=== PATIENT | female | born 2000 | race Caucasian/White ===

== ENCOUNTER 2023-01-02 01:21 | Emergency (ER) | payer OTHER, SELFPAY ==
[2023-01-02 01:38] VITALS: BP 121/69; PULSE 66; RESP 16; TEMP 37.2; O2SAT 99; BMI 22.8
--- NOTE | 2023-01-02 02:18 | ED.FEMALEGU ---
HPI - Female Genitourinary General Chief complaint: Urogenital-Female Stated complaint: cyst on rt ovary hurts Time Seen by Provider: 01/02/23 01:34 Source: patient Mode of arrival: Ambulatory History of Present Illness HPI Narrative: 22-year-old female nonsmoker with history of ovarian cysts recently diagnosed by CT scan at [facility] presents with a chief complaint of sudden-onset right lower quadrant pain that started about 1 hour ago. She states she had been in her normal state of health and felt the pain that is relatively similar to what she had been experiencing it just seems to have intensified. She states it is worse when she moves and improves with rest. It is sharp and stabbing and has been rather persistent. She denies associated symptoms such as dizziness, weakness or lightheadedness. She has had no nausea or vomiting. She denies constipation or diarrhea and has no urinary complaints such as dysuria, frequency or urgency. She does not have periods due to her IUD but denies vaginal bleeding or discharge. Related Data Previous Rx's Medication Instructions Recorded ibuprofen 600 mg tablet 600 mg PO Q6H PRN pain #20 tabs 01/02/23 Allergies Allergy/AdvReac Type Severity Reaction Status Date / Time No Known Drug Allergies Allergy Verified 01/02/23 02:03 Review of Systems Review of Systems Narrative: GENERAL: Denies chills, fatigue, malaise, fever, sweats. HEENT: Denies sinus pain, ear pain, sore throat, difficulty swallowing, dizziness. RESPIRATORY: Denies dyspnea, cough, wheezing, hemoptysis, sputum. CARDIOVASCULAR: Denies chest pain, palpitations, orthopnea, edema, GASTROINTESTINAL: Denies nausea, vomiting, abdominal pain, diarrhea, constipation, melena. : See HPI MUSCULOSKELETAL: denies weakness, joint pain, or bony pain SKIN: Denies rash, skin lesions, or other NEUROLOGIC: Denies weakness, headache, numbness, change in speech, confusion, seizures, incoordination. PSYCHIATRIC: No concerning psychosocial issues. 12 point review of systems is negative except for those stated above Patient History Substance Use Type: does not use Exam Narrative Exam Narrative: GENERAL: [22] year old patient appears stated age. Well-developed patient, in mild distress. HEAD: Atraumatic. Normocephalic. EYES: Pupils equal round and reactive. Extraocular motions intact. No scleral icterus. No injection or drainage. ENT: Nose without bleeding, purulent drainage. Throat without erythema, tonsillar hypertrophy or exudate. Airway patent. NECK: Trachea midline. Non tender CARDIOVASCULAR: Regular rate and rhythm without murmurs, gallops, or rubs. RESPIRATORY: Clear to auscultation. Breath sounds equal bilaterally. No wheezes, rales, or rhonchi. GASTROINTESTINAL: Abdomen soft, right lower quadrant tenderness to palpation, no rebound or guarding, nondistended. EXTREMITIES: No edema or joint tenderness. BACK: Nontender without deformity or crepitance. No flank tenderness. NEURO: AOx3. SKIN: No rash or erythema of visible areas Initial Vital Signs Initial Vital Signs: Vital Signs Temperature 98.9 F 01/02/23 01:38 Pulse Rate 66 01/02/23 01:38 Respiratory Rate 16 01/02/23 01:38 Blood Pressure 121/69 01/02/23 01:38 Pulse Oximetry 99 01/02/23 01:38 Oxygen Delivery Method Room Air 01/02/23 01:38 Course Orders Ordered: ED Orders 01/02/23 02:23 US pelvic complete Stat Discontinued Medications Hydrocodone Bitart/Acetaminophen (Hydrocodone/Acet 5/325 Prepack) 1 bottle MISC SEEINSTR ONE Stop: 01/02/23 04:07 Ketorolac Tromethamine (Ketorolac 30 Mg/Ml Vial) 30 mg IM NOW ONE Stop: 01/02/23 03:29 Last Admin: 01/02/23 03:41 Dose: 30 mg Documented By: Vital Signs Vital signs: Vital Signs - 8 hr 01/02/23 01:38 01/02/23 03:46 Temperature 98.9 F Pulse Rate 66 59 L Respiratory Rate 16 16 Blood Pressure 121/69 113/57 L Pulse Oximetry 99 100 Oxygen Delivery Method Room Air Room Air MDM - Female Genitourinary Lab Data Labs: Point of Care Testing Test Results Negative Urine Dip Bedside Urine Glucose Negative Bedside Urine Bilirubin - Negative Bedside Urine Ketone - Negative Urine Specific [place] 1.025 Bedside Urine Occult Blood - Negative Bedside Urine pH 6.0 Bedside Urine Protein - Negative Bedside Urine Urobilinogen 0.2mg/dl Bedside Urine Nitrite - Negative Bedside Urine Leukocytes - Negative Esterase MDM Narrative Medical decision making narrative: [22] year old patient presents with right lower quadrant pain and known history of ovarian cyst Multiple etiologies for patient's symptoms considered including, but not limited to: [Ovarian cyst versus UTI vs IUD problem versus other] Prior Charts reviewed in our EMR Primary Historian: patient Labs reviewed and interpreted by myself: Urine without signs of infection or blood Imaging reviewed: Ultrasound shows minimal amount of fluid, IUD in appropriate position, normal sonographic appearance of right ovary, likely corpus luteum in the left ovary Patient's symptoms improved over duration of stay with above-stated therapies. Marked improvement with Toradol. We did discuss possibility of alternate diagnoses such as early appendicitis versus other, however she just had an extensive workup including CT scan that was unremarkable. Given her improved symptoms, rather classic history and physical and reassuring ultrasound we will hold off for now and discussed that the next 12-24 hours would likely be very helpful in uncovering more significant underlying diagnoses patient given extensive return precautions which include worsening pain, fever, persistent vomiting or other concerning symptoms Findings and discharge diagnosis discussed with patient/family followed by verbalization of understanding Return precautions discussed with patient/family whom verbalize understanding of diagnosis and plan Discharge Plan Departure Patient Disposition: Home Clinical Impression: Acute right lower quadrant pain Instructions: DI for Ovarian Cyst Activity Restrictions/Additional Instructions: *You have been diagnosed with [right lower quadrant pain, as we discussed most likely due to your ovarian cyst. Your history and physical exam are reassuring, labs demonstrate no sign urinary infection in the ultrasound shows no significant abnormalities. As we discussed though this could be an alternate diagnosis such as early appendicitis seems unlikely given your story but the next 12-24 hours we would expect worsening pain, fever, vomiting if a more serious underlying diagnosis were present] *What to do: *Please continue to take your regular medications as directed. [x ] New medication prescriptions sent to your pharmacy: [[facility] ] [ ] New medication written as a paper prescription [ ] No new medications given *Please follow up with your primary care provider in 2-3 days, call for an appointment. Let them know you were seen in the Emergency Department and that we ask that you be seen in follow up. We will electronically transmit a record of today's note if your PCP is in our system *If you do not have a primary care provider please contact the [facility] Resource line at [phone]. They will ask some questions about your medical history and help get you set up with a doctor in the community. *Return to Emergency Department if you should have any new, worsening or concerning symptoms, such as [fever greater than 101 F, shaking chills, worsening pain, persistent vomiting or other bothersome symptoms] Prescriptions: New ibuprofen 600 mg tablet 600 mg PO Q6H PRN (Reason: pain) Qty: 20 0RF Referrals: ProviderWan [Primary Care Provider] - Stand Alone Forms: Patient Portal/API
--- NOTE | 2023-01-02 02:23 | DI.US.S_ITS ---
PROCEDURE: US PELVIC COMPLETE INDICATIONS: RIGHT PELVIC PAIN; HX OVARIAN CYST TECHNIQUE: Real-time scanning was performed of the pelvic organs, with image documentation. Additional endovaginal scanning was necessary due to incomplete visualization of the adnexal and endometrial structures by transabdominal scanning. COMPARISON: None. FINDINGS: Uterus: Uterus is anteverted and normal in size at 6.9 x 3.5 x 4.3 cm. The myometrium is homogeneous. The endometrium measures 2 mm combined thickness. IUD within the central uterus. Ovaries: The right ovary measures 2.5 x 3.3 x 2.2 cm, with a calculated ovarian volume of 9 cc. The left ovary measures 2.5 x 3.0 x 3.3 cm, with a calculated ovarian volume of 13 cc. The ovaries have a normal sonographic appearance. Less than 12 follicles can be seen in each ovary. No adnexal masses are seen. Degenerating left corpus luteum. Other: No pathologic free abdominal or pelvic fluid. IMPRESSION: Degenerating left-sided corpus luteum. IUD appears appropriately positioned. Agree with preliminary report. We strive to produce accurate, complete, and clear reports of imaging services. To assist us in improving patient care, this report was composed using standard report templates and voice recognition software. Therefore, it may contain abnormal punctuation, insertions and/or omissions. Occasional wrong-word or sound-alike substitutions may occur. Though we review the report and make efforts to correct it, we do recommend that the report be read carefully in proper context to recognize any text inaccuracies. Dictated by: Garrett Aguayo M.D. on 01/02/2023 at 8:02 Approved by: Garrett Aguayo M.D. on 01/02/2023 at 8:04
[2023-01-02] MEDS: KETOROLAC 30 MG/ML VIAL IM (03:41)
[2023-01-02 03:46] VITALS: BP 113/57; PULSE 59; RESP 16; O2SAT 100
[2023-01-02] MEDS: HYDROCODONE/ACET 5/325 PREPACK 1 BOTTLE MISC (04:11)
== END 2023-01-02 04:14 | disposition home or self-care (01) ==
PROVIDERS: Emergency Provider Emergency Medicine
DX: R10.31 Right lower quadrant pain (principal)
CPT/HCPCS: 76830; 76856; 81003; 81025; 93975; 96372; 99283; J1885

== ENCOUNTER 2023-06-04 20:18 | Emergency (ER) | payer OTHER, SELFPAY ==
[2023-06-04 21:21] VITALS: BP 128/68; PULSE 106; RESP 16; TEMP 37.4; O2SAT 98; BMI 21.9
[2023-06-04 21:45] LABS: COVID19 -Nasal RAPID POSITIVE (Negative); Strep Grp A by PCR Rapid Negative (Negative)
[2023-06-05 03:05] VITALS: BP 133/72; PULSE 114; RESP 20; TEMP 36.9; O2SAT 100
--- NOTE | 2023-06-05 03:26 | ED.URI ---
HPI - URI/Sore Throat General Chief Complaint: Upper Respiratory Symptoms Stated Complaint: Fever Time Seen by Provider: 06/05/23 03:26 Source: patient Mode of arrival: Ambulatory History of Present Illness HPI Narrative: Patient is a healthy 23-year-old female who presents today with sore throat headache upper respiratory like symptoms that started 1-2 days ago. Still was not feeling quite right today so she came in. She is not having any significant shortness of breath. She is able to tolerate fluids. He has some body aches. She takes Tylenol or ibuprofen for it which seems to help. Related Data Previous Rx's Medication Instructions Recorded ibuprofen 600 mg tablet 600 mg PO Q6H PRN pain #20 tabs 01/02/23 Allergies Allergy/AdvReac Type Severity Reaction Status Date / Time No Known Drug Allergies Allergy Verified 01/02/23 02:03 Review of Systems Review of Systems ROS Unobtainable: All systems reviewed & are unremarkable except as noted in HPI and below Patient History Social History Smoking Status: Never smoker Smoking Status: Never smoker Substance Use Type: does not use Exam Initial Vital Signs Initial Vital Signs: Vital Signs Temperature 99.3 F 06/04/23 21:21 Pulse Rate 106 H 06/04/23 21:21 Respiratory Rate 16 06/04/23 21:21 Blood Pressure 128/68 06/04/23 21:21 Pulse Oximetry 98 06/04/23 21:21 Oxygen Delivery Method Room Air 06/04/23 21:21 GENERAL: Alert very well-appearing 23-year-old female and in no acute distress. HEENT: Head atraumatic,EOMI, pupils reactive, face symmetric, moist mucous membranes PHARYNX: No erythema, no tonsillar exudate, no cervical lymphadenopathy CARDIOVASCULAR: Regular rate and rhythm without murmurs, rubs or gallops. RESPIRATORY: Breath sounds equal bilaterally, no wheezes rales or rhonchi. EXTREMITIES: Normal range of motion, no clubbing or edema. Neurovascularly intact NEUROLOGICAL: Alert and oriented x4. SKIN: Warm, dry, no laceration, no petechiae, no rashes or lesions. Course Orders Ordered: ED Orders 06/04/23 21:26 COVID19 -Nasal RAPID Stat Strep Grp A by PCR Rapid Stat Throat Culture Stat Vital Signs Vital signs: Vital Signs - 8 hr 10/09/23 03:05 Temperature 98.4 F Pulse Rate 114 H Respiratory Rate 20 Blood Pressure 133/72 Pulse Oximetry 100 Oxygen Delivery Method Room Air MDM - URI/Sore Throat Lab Data Labs: Lab Results 06/04/23 Range/Units 21:26 SARS-CoV-2 (PCR) Positive H (Negative) Group A Strep (PCR) Negative (Negative) MDM Narrative Medical decision making narrative: Patient 23-year-old female who presents today with upper respiratory like symptoms. She overall appears well vitals are stable. She is found to be COVID positive. This time not hypoxia does not need any further workup. Supportive care only Discharge Plan Departure Patient Disposition: Home Clinical Impression: COVID-19 Instructions: COVID-19 Activity Restrictions/Additional Instructions: *You have been diagnosed with COVID-19 *What to do: At this time increase fluids as tolerated fever control with Tylenol Motrin *Continue to take medications as directed *Follow up with your primary care provider in 2-3 days or call [phone] *Return to ER if you should have increasing shortness of breath oxygen less than 90% no tolerating fluids [or] any new, worsening or concerning symptoms Prescriptions: No Action ibuprofen 600 mg tablet 600 mg PO Q6H PRN (Reason: pain) Qty: 20 0RF Referrals: ProviderWan [Primary Care Provider] - Stand Alone Forms: Patient Portal/API, Work Release Note
== END 2023-06-05 03:33 | disposition home or self-care (01) ==
PROVIDERS: Emergency Provider Emergency Medicine
DX: U07.1 COVID-19 (principal)
CPT/HCPCS: 87070; 87635; 87651; 99281; 99283; C9803

== ENCOUNTER 2024-06-14 20:25 | Emergency (ER) | payer OTHER, SELFPAY ==
[2024-06-14 20:46] VITALS: BP 125/71; PULSE 108; RESP 12; TEMP 36.3; O2SAT 99; BMI 21.5
--- NOTE | 2024-06-14 20:57 | DI.RAD.S_ITS ---
PROCEDURE: XR KNEE LT 3V INDICATIONS: left knee pain, felt pop TECHNIQUE: 3 views of the knee were acquired. COMPARISON: None. FINDINGS: Bones: No fractures or dislocations. No suspicious bony lesions. Soft tissues: No joint effusion. No suspicious soft tissue calcifications. IMPRESSION: No acute bony abnormality or significant effusion. Dictated by: Shaun Chaves M.D. on 06/14/2024 at 22:24 Approved by: Shaun Chaves M.D. on 06/14/2024 at 22:25
[2024-06-15 00:24] VITALS: BP 118/70; PULSE 87; O2SAT 99
[2024-06-15 00:30] VITALS: BP 114/67; PULSE 68; O2SAT 99
--- NOTE | 2024-06-15 00:55 | ED_ITS ---
HPI - Extremity Injury (Lower) General Chief Complaint: Extremity Injury, Lower Stated Complaint: injured lt knee Time Seen by Provider: 06/15/24 00:54 Source: patient Mode of arrival: Ambulatory Limitations: no limitations History of Present Illness HPI Narrative: 24-year-old female presents with complaint of left knee pain. Patient states had a prior injury ultimately had an MRI which was negative except for some changes to how her patella lays and states that had overall improved, a week ago she states she was doing a twisting motion she felt a pop in her knee has been painful and unstable since. Particularly full extension or full flexion is painful when she attempts to weightbear. She states it feels a little bit unstable no persistent grinding or popping. Notes a little bit of swelling. She did not appreciate any ecchymosis but states she would look very closely. She has had some sensation of numbness tingling down her leg as well. Denies any other injuries. She has not been taking anything pain. States states duloxetine daily. Denies any prior surgeries. No known drug allergies. No tobacco, alcohol or recreational drugs. She receives her medical care through the [facility]. Related Data Previous Rx's Medication Instructions Recorded ibuprofen 600 mg tablet 600 mg PO Q6H PRN pain #20 tabs 01/02/23 meloxicam 7.5 mg tablet 7.5 mg PO BID PRN pain #10 tabs 06/15/24 Allergies Allergy/AdvReac Type Severity Reaction Status Date / Time No Known Drug Allergies Allergy Verified 06/14/24 20:57 Review of Systems Review of Systems ROS Unobtainable: All systems reviewed & are unremarkable except as noted in HPI and below Patient History Social History Smoking Status: Never smoker Smoking Status: Never smoker Substance Use Type: does not use Exam Narrative Exam Narrative: GENERAL: Alert and oriented x three, female in mild distress HEENT: Head normocephalic, atraumatic, EOMI, pupils reactive, face symmetric, moist mucous membranes NECK: Supple, full range of motion EXTREMITIES: Patient does have some discomfort with full flexion-extension. no clubbing or edema. Neurovascularly intact. Patient has tenderness over the tibial plateau, also little bit in the lateral sides of the knee. No tenderness over the patella or quadriceps or patellar tendon. Patient a little bit of laxity with anterior drawer not appreciated with posterior drawer. Does have increased pain and discomfort with valgus varus testing. Also has some discomfort with compression test. Patient has no obvious deformity, swelling or ecchymosis. No other bony tenderness throughout the leg. Normal sensation to light touch. 2+ dorsalis pedis on exam. NEUROLOGICAL: Cranial nerves II through XII grossly intact. Moving all ex tremities SKIN: Warm, dry, no petechiae, no rashes or lesions. Initial Vital Signs Initial Vital Signs: Vital Signs Temperature 97.4 F L 06/14/24 20:46 Pulse Rate 108 H 06/14/24 20:46 Respiratory Rate 12 06/14/24 20:46 Blood Pressure 125/71 06/14/24 20:46 Pulse Oximetry 99 06/14/24 20:46 Oxygen Delivery Method Room Air 06/14/24 20:46 Course Orders Ordered: ED Orders 06/14/24 20:57 XR knee LT 3V Stat Vital Signs Vital signs: Vital Signs - 8 hr 06/14/24 20:46 06/15/24 00:24 06/15/24 00:24 Temperature 97.4 F L Pulse Rate 108 H 87 Respiratory Rate 12 Blood Pressure 125/71 118/70 Pulse Oximetry 99 99 Oxygen Delivery Method Room Air 06/15/24 00:30 06/15/24 00:30 06/15/24 01:00 Temperature Pulse Rate 68 Respiratory Rate Blood Pressure 114/67 120/69 Pulse Oximetry 99 Oxygen Delivery Method 06/15/24 01:00 06/15/24 01:30 06/15/24 01:30 Temperature Pulse Rate 67 62 Respiratory Rate Blood Pressure 116/74 Pulse Oximetry 100 100 Oxygen Delivery Method Room Air MDM - Extremity Injury (Lower) Imaging Data Extremity x-ray #1: Radiologist's Impression: [address] [address] XRay Report Signed Patient: Carlos Vazquez MR#: [id number] : 2000 Acct:[id number] Age/Sex: 24 / F Date of Service: 06/14/24 Loc: ED Accession Number: [id number] Procedure: XR knee LT 3V Ordering Provider: Jazmín Mata D.O. PROCEDURE: XR KNEE LT 3V INDICATIONS: left knee pain, felt pop TECHNIQUE: 3 views of the knee were acquired. COMPARISON: None. FINDINGS: Bones: No fractures or dislocations. No suspicious bony lesions. Soft tissues: No joint effusion. No suspicious soft tissue calcifications. IMPRESSION: No acute bony abnormality or significant effusion. Dictated by: Shaun Chaves M.D. on 06/14/2024 at 22:24 Approved by: Shaun Chaves M.D. on 06/14/2024 at 22:25 [facility] Narrative Medical decision making narrative: 24-year-old with complaint of left knee pain patient has a history of prior injury, re-injured it proximally week ago. X-ray does not show any acute change. Exam so little bit of laxity with anterior drawer pain with valgus varus movement. Patient placed in knee immobilizer weightbear as tolerated, prescription for pain management. Patient was given referral for Orthopedics but also disc as orthosis available with the [facility] where she follows for care. Discharge Plan Departure Patient Disposition: Home Clinical Impression: Left knee sprain Instructions: DI for Knee Sprain Activity Restrictions/Additional Instructions: Please follow up for recheck with the orthopedic surgery in the next 1-2 weeks. You can take Tylenol up to a 1000 mg every 6 hours as needed, can take meloxicam 1 tablet every 12 hours as needed. Do not take ibuprofen, Aleve or naproxen with the medication prescription sent to [facility] in [place]. Splint Care: Keep splint clean and dry. Elevated affected body part to decrease swelling. OK to use ice pack on the affected body part. Use for 15-20 minutes each time, for 5-6x per day. If you develop worsening pain, numbness, tingling, discoloration of the affected body part, adjust a knee immobilizer, and either see your doctor for an urgent re-assessment, or return to the Emergency Department. Return to the Emergency Department for any new or worsening symptoms. Prescriptions: New meloxicam 7.5 mg tablet 7.5 mg PO BID PRN (Reason: pain) Qty: 10 0RF No Action ibuprofen 600 mg tablet 600 mg PO Q6H PRN (Reason: pain) Qty: 20 0RF Referrals: Provider,Wan VALDIVIA [Primary Care Provider] - Mari Currie MD [Physician] - Stand Alone Forms: Patient Portal/API
[2024-06-15 01:00] VITALS: BP 120/69; PULSE 67; O2SAT 100
[2024-06-15 01:30] VITALS: BP 116/74; PULSE 62; O2SAT 100
== END 2024-06-15 01:54 | disposition home or self-care (01) ==
PROVIDERS: Emergency Provider Emergency Medicine
DX: S83.92XA Sprain of unspecified site of left knee, initial encounter (principal); X58.XXXA Exposure to other specified factors, initial encounter
CPT/HCPCS: 73562; 99283

== ENCOUNTER → 2024-07-01 12:35 | Outpatient (CLI) | payer OTHER, SELFPAY ==
--- NOTE | 2024-07-01 12:54 | DI.MRI.S_ITS ---
PROCEDURE: MR KNEE LT WO CON INDICATIONS: pain in left knee TECHNIQUE: Noncontrast sagittal PD fast spin echo and T2 fast spin echo with fat saturation, sagittal 3-D FLASH with fat saturation; coronal T1 spin echo and PD fast spin echo with fat saturation, and axial PD fast spin echo with fat saturation through the knee. COMPARISON: [facility], CR, XR KNEE LT 3V, 06/14/2024, 21:03. FINDINGS: Image quality: Excellent. Menisci: The medial and lateral menisci demonstrate normal morphology and internal signal. The meniscal root ligaments appear intact. Cruciate ligaments: The anterior cruciate ligament is thickened. The posterior cruciate ligament is intact. Medial structures: The medial collateral ligament appears intact. Visualized portions of the pes anserinus tendons appear normal. No abnormal bursal fluid. Lateral structures: The lateral collateral ligament, long and short heads of the biceps femoris tendon appear intact. The popliteus tendon appears normal. Iliotibial band appears normal. Anterior structures: The quadriceps and patellar tendons appear intact. Patellar alignment is normal. No femoral trochlear dysplasia or ventral trochlear prominence. No edema in the infrapatellar fat pad. Bones and cartilage: No bone marrow contusions or fractures. The cartilage of the medial and lateral femorotibial compartments, as well as the patellofemoral compartment, appears normal in thickness. Joint space: There is physiologic knee joint fluid. No Akins's cyst. Normal appearing synovial plicae are incidentally noted. IMPRESSION: 1. Low-grade sprain/intrasubstance partial-thickness tear involving ACL. No ACL rupture. The PCL is intact. 2. There is no evidence of focal meniscal tear. 3. No marrow edema. No fracture or dislocation. Articulating cartilages normal in thickness. No significant joint effusion or intra-articular loose bodies. Dictated by: Adal Moreno M.D. on 07/01/2024 at 16:44 Approved by: Adal Moreno M.D. on 07/01/2024 at 16:57
== END ==
LOC: MRI 12:35
DX: S83.512A Sprain of anterior cruciate ligament of left knee, initial encounter (principal); M25.562 Pain in left knee
CPT/HCPCS: 73721

== ENCOUNTER → 2024-08-15 10:44 | Outpatient (CLI) | payer OTHER, SELFPAY ==
--- NOTE | 2024-08-15 | DI.US.S_ITS ---
LIMITED ULTRASOUND OF LEFT BREAST: 08/15/2024 CLINICAL: Referred for follow up of finding on outside CTA dated 07/17/2024. No prior exams were available for comparison. Color flow and real-time ultrasound of the left breast 12-4 o'clock region were performed. Hernadez scale images of the real-time examination were reviewed. There is no sonographic abnormality in the left breast from 2-4 o'clock at a distance of 8 cm from the nipple to correspond to previously described outside CT masslike area . Of note, outside CT report states right breast, however only the lateral left breast is visualized. Incidental benign intramammary lymph node is seen at 2 o'clock, 8 cm from the nipple. IMPRESSION: BENIGN No sonographic abnormality in the left breast from 2-4 o'clock. Incidental intramammary lymph node at 2 o'clock is benign. No sonographic evidence of malignancy. Recommend routine screening mammogram starting at age 40. This exam was interpreted at Station ID: [id number]. Electronically Signed By: Aparna Lackey M.D., Ph.D. eb/:08/15/2024 13:31:28 letter sent: Clinical Evaluation ACR BI-RADS Category 2: Benign
== END ==
PROVIDERS: Referring Provider Physician Assistant; Visit Provider Physician Assistant
DX: N63.0 Unspecified lump in unspecified breast (principal)
CPT/HCPCS: 76642

== ENCOUNTER 2024-09-21 19:22 | Emergency (ER) | payer OTHER, SELFPAY ==
[2024-09-21 19:24] VITALS: BP 126/78; PULSE 88; RESP 17; TEMP 37.2; O2SAT 99; BMI 21.5
--- NOTE | 2024-09-21 20:34 | ED.ABDPAIN ---
HPI - Abdominal Pain General Chief Complaint: Abdominal Pain Stated Complaint: abd and back px, dizziness Time Seen by Provider: 09/21/24 20:16 Source: patient Mode of arrival: Ambulatory History of Present Illness HPI narrative: 24-year-old female with chronic abdominopelvic pain, awaiting Gastroenterology consultation, awaiting further gynecology consultation and possible laparoscopy, possible endometriosis, most recently treated with 2 months NuvaRing which did not help her symptoms, July 2024 received 1st Depo shot, last menstrual period July 2024, not currently having vaginal bleeding, but with increased bilateral pelvic area discomfort through the day today. No fevers or chills. No nausea or vomiting, no loose stools, no black or red stools. She has not recently been treated with any antibiotics. She does take meloxicam. Related Data Previous Rx's Medication Instructions Recorded ibuprofen 600 mg tablet 600 mg PO Q6H PRN pain #20 tabs 01/02/23 meloxicam 7.5 mg tablet 7.5 mg PO BID PRN pain #10 tabs 06/15/24 Allergies Allergy/AdvReac Type Severity Reaction Status Date / Time No Known Drug Allergies Allergy Verified 09/21/24 19:24 Patient History Social History Smoking Status: Never smoker Smoking Status: Never smoker Exam Narrative Exam Narrative: GENERAL:Well-developed patient, in mild distress. HEAD: Atraumatic. Normocephalic. EYES: Pupils equal round and reactive. Extraocular motions intact. No scleral icterus. No injection or drainage. ENT: Nose without bleeding, purulent drainage. Throat without erythema, tonsillar hypertrophy or exudate. Airway patent. NECK: Trachea midline. Non tender CARDIOVASCULAR: Regular rate and rhythm without murmurs, gallops, or rubs. RESPIRATORY: Clear to auscultation. Breath sounds equal bilaterally. No wheezes, rales, or rhonchi. GASTROINTESTINAL: Abdomen soft, non-tender, nondistended. Bowel tones unremarkable, without rushes or tinkles, not particularly hyperactive or hypoactive EXTREMITIES: No edema or joint tenderness. BACK: Nontender without deformity or crepitance. No flank tenderness. NEURO: AOx3. Motor functions grossly nonfocal SKIN: No rash or erythema of visible areas Initial Vital Signs Initial Vital Signs: Vital Signs Temperature 98.9 F 09/21/24 19:24 Pulse Rate 88 09/21/24 19:24 Respiratory Rate 17 09/21/24 19:24 Blood Pressure 126/78 09/21/24 19:24 Pulse Oximetry 99 09/21/24 19:24 Oxygen Delivery Method Room Air 09/21/24 19:24 Course Orders Ordered: ED Orders 09/21/24 20:30 Complete Blood Count AUTO DIFF Stat Comprehensive Metabolic Panel Stat Lipase Stat 09/21/24 21:08 US pelvic complete Stat Discontinued Medications Ketorolac Tromethamine (Ketorolac 30 Mg/Ml Vial) 15 mg IV NOW ONE Stop: 09/21/24 21:12 Last Admin: 09/21/24 21:35 Dose: 15 mg Documented By: SB Vital Signs Vital signs: Vital Signs - 8 hr 09/21/24 19:24 Temperature 98.9 F Pulse Rate 88 Respiratory Rate 17 Blood Pressure 126/78 Pulse Oximetry 99 Oxygen Delivery Method Room Air MDM - Abdominal Pain Lab Data Attestation: I reviewed the patient's lab results. Lab results narrative: White blood cell count 9100, hemoglobin 14.5, platelets adequate. Basic metabolic panel unremarkable. Liver functions and lipase normal urine dip negative. Urine test negative. 09/21/24 20:30 09/21/24 20:30 Labs: Lab Results 09/21/24 Range/Units 20:30 WBC 9.1 (4.5-11.0) X10^3/uL RBC 4.83 (4.0-5.2) X10^6/uL Hgb 14.5 (12.0-16.0) g/dL Hct 42.9 (36-46) % MCV 88.9 (80-100) fL MCH 30.1 (26-34) PG MCHC 33.9 (30-36) % RDW 12.4 (11.6-14.8) % Plt Count 434 H (150-400) X10^3/uL Neut % (Auto) 50.6 (50-75) % Lymph % (Auto) 39.1 (25-40) % [place] % (Auto) 7.5 (3-14) % Eos % (Auto) 2.1 (2-4) % Baso % (Auto) 0.7 (0-2) % Neut # (Auto) 4600 (2192-3122) /uL Lymph # (Auto) 3600 (1128-5383) /uL [place] # (Auto) 700 (0-900) /uL Eos # (Auto) 200 (0-450) /uL Baso # (Auto) 100 (0-100) /uL Sodium 139 (137-145) mmol/L Potassium 3.7 (3.4-5.1) mmol/L Chloride 108 H (98-107) mmol/L Carbon Dioxide 22 (22-32) mmol/L BUN 10 (7-17) mg/dL Creatinine 0.73 (0.52-1.04) mg/dL Estimated GFR > 60 (>60) mL/min BUN/Creatinine Ratio 13.7 (6-22) Glucose 96 (70-100) mg/dL Calcium 9.2 (8.4-10.2) mg/dL Total Bilirubin 0.4 (0.2-1.3) mg/dL AST 26 (14-36) IU/L ALT 19 (<35) IU/L Alkaline Phosphatase 74 (38-126) U/L Total Protein 8.2 (6.3-8.2) g/dL Albumin 4.6 (3.5-5.0) g/dL Globulin 3.6 (1.7-4.1) g/dL Albumin/Globulin Ratio 1.3 (1.0-2.8) Lipase 141 (23-300) U/L Point of care testing: Point of Care Testing Test Results Negative Urine Dip Bedside Urine Glucose Negative Bedside Urine Bilirubin - Negative Bedside Urine Ketone - Negative Urine Specific [place] 1.015 Bedside Urine Occult Blood +/- Bedside Urine pH 6.0 Bedside Urine Protein - Negative Bedside Urine Urobilinogen - Negative Bedside Urine Nitrite - Negative Bedside Urine Leukocytes - Negative Esterase Imaging Data Pelvic ultrasound: Radiologist's Impression: [address] [address] Ultrasound Report Signed Patient: Carlos Vazquez MR#: [id number] : 2000 Acct:[id number] Age/Sex: 24 / F Date of Service: 09/21/24 Loc: ED Accession Number: [id number] Procedure: US pelvic complete Ordering Provider: Manuel De Leon MD PROCEDURE: US PELVIC COMPLETE INDICATIONS: BLQ pain TECHNIQUE: Real-time scanning was performed of the pelvic organs, with image documentation. Additional endovaginal scanning was necessary due to incomplete visualization of the adnexal and endometrial structures by transabdominal scanning. COMPARISON: [facility], , US PELVIC COMPLETE, 01/02/2023, 3:07. FINDINGS: Uterus: 6.6 x 3.2 x 4.5 cm. Endometrium measures 4 mm. Ovaries: Nonenlarged ovaries measuring 4-5 cc bilaterally. No significant cystic or solid lesion. Other: No pathologic free abdominal or pelvic fluid. IMPRESSION: Nonenlarged ovaries bilaterally. No acute evidence of torsion. Unremarkable sonographic appearance of the uterus. Dictated by: Mateus Bower M.D. on 09/21/2024 at 22:00 Approved by: Mateus Bower M.D. on 09/21/2024 at 22:01 [facility] Narrative Medical decision making narrative: 24-year-old female with chronic abdominopelvic pain awaiting consultation with gynecology for possible laparoscopy and suspected endometriosis, also awaiting future gastroenterology appointment, with worsening lower abdominal discomfort today. Afebrile, sirs screen negative. No abdominal tenderness. Labs sent and were unremarkable, hCG negative. Urine dip negative. Pelvic ultrasound requested. IV Toradol given. Pain symptoms improved with Toradol. Pelvic ultrasound report pending Pelvic ultrasound. Impressions: ?Nonenlarged ovaries bilaterally. No acute evidence of torsion. Unremarkable sonographic appearance of the uterus.? See radiology report Patient feels improved, declines further workup that might include CT abdomen and pelvis imaging at this time, we will follow up with Gynecology and gastroenterology as planned. Encouraged to continue her meloxicam anti-inflammatory pain medication. Return precautions. Discharged home with family Discharge Plan Departure Patient Disposition: Home Clinical Impression: Abdominal pain Activity Restrictions/Additional Instructions: Abdominal pain unclear etiology, awaiting gynecology consultation and gastroenterology consultation. Suspected endometriosis by your report, possible laparoscopy by gynecology to be scheduled. Worse pain today prompting visit, no fever on triage, abdominal exam without significant tenderness, stable normal vital signs. Screening labs unremarkable. Ultrasound of the pelvis was obtained tonight, there was good blood flow to both ovaries, and both ovaries were not enlarged, no mention of any cystic structures or inflammatory infectious like changes. We did discuss initial advanced imaging such as CT scanning of the abdomen and pelvis, likely not worth the risks of radiation at this time, hold for now. Follow up with your Gynecology and later with your gastroenterology specialist to further delineate the cause of ongoing abdominal discomfort. You were given an IV dose of Toradol. Continue taking your meloxicam medication for now. Recheck with your regular doctor if symptoms persist early this next week. Follow up with your specialists as above. Return earlier to this/nearest emergency department for any change worsening symptoms or any concerns prior Prescriptions: No Action meloxicam 7.5 mg tablet 7.5 mg PO BID PRN (Reason: pain) Qty: 10 0RF ibuprofen 600 mg tablet 600 mg PO Q6H PRN (Reason: pain) Qty: 20 0RF Referrals: ProviderWan [Primary Care Provider] - Stand Alone Forms: Patient Portal/API/Survey
[2024-09-21 20:45] LABS: Add Manual Diff / Slide Review NO; Basophils Absolute Auto 100 /uL (0-100); Basophils Percent Auto 0.7 % (0-2); Eosinophils Absolute Auto 200 /uL (0-450); Eosinophils Percent Auto 2.1 % (2-4); Hematocrit 42.9 % (36-46); Hemoglobin 14.5 g/dL (12.0-16.0); Lymphocytes Absolute Auto 3600 /uL (1100-4500); Lymphocytes Percent Auto 39.1 % (25-40); Mean Corpuscular HGB Conc 33.9 % (30-36); Mean Corpuscular Hemoglobin 30.1 PG (26-34); Mean Corpuscular Volume 88.9 fL (80-100); Monocytes Absolute Auto 700 /uL (0-900); Monocytes Percent Auto 7.5 % (3-14); Neutrophils Absolute Auto 4600 /uL (1500-7000); Neutrophils Percent Auto 50.6 % (50-75); Platelet Count 434 X10^3/uL (150-400); Red Blood Cell Count 4.83 X10^6/uL (4.0-5.2); Red Cell Distribution Width 12.4 % (11.6-14.8); White Blood Cell Count 9.1 X10^3/uL (4.5-11.0)
[2024-09-21 20:50] LABS: Alanine Aminotransferase 19 IU/L (<35); Albumin 4.6 g/dL (3.5-5.0); Albumin Globulin Ratio 1.3 (1.0-2.8); Alkaline Phosphatase 74 U/L (38-126); Aspartate Aminotransferase 26 IU/L (14-36); BUN Creatinine Ratio 13.7 (6-22); Bilirubin Total 0.4 mg/dL (0.2-1.3); Blood Urea Nitrogen 10 mg/dL (7-17); Calcium 9.2 mg/dL (8.4-10.2); Carbon Dioxide 22 mmol/L (22-32); Chloride 108 mmol/L (98-107); Estimated Glomerular Filt Rate > 60 mL/min (>60); Globulin 3.6 g/dL (1.7-4.1); Glucose 96 mg/dL (70-100); HEMOLYSIS < 15 (0-50); Lipase 141 U/L (23-300); Potassium 3.7 mmol/L (3.4-5.1); Sodium 139 mmol/L (137-145); Total Protein 8.2 g/dL (6.3-8.2)
--- NOTE | 2024-09-21 21:08 | DI.US.S_ITS ---
PROCEDURE: US PELVIC COMPLETE INDICATIONS: BLQ pain TECHNIQUE: Real-time scanning was performed of the pelvic organs, with image documentation. Additional endovaginal scanning was necessary due to incomplete visualization of the adnexal and endometrial structures by transabdominal scanning. COMPARISON: [facility], , US PELVIC COMPLETE, 01/02/2023, 3:07. FINDINGS: Uterus: 6.6 x 3.2 x 4.5 cm. Endometrium measures 4 mm. Ovaries: Nonenlarged ovaries measuring 4-5 cc bilaterally. No significant cystic or solid lesion. Other: No pathologic free abdominal or pelvic fluid. IMPRESSION: Nonenlarged ovaries bilaterally. No acute evidence of torsion. Unremarkable sonographic appearance of the uterus. Dictated by: Mateus Bower M.D. on 09/21/2024 at 22:00 Approved by: Mateus Bower M.D. on 09/21/2024 at 22:01
[2024-09-21] MEDS: KETOROLAC 30 MG/ML VIAL 15 MG IV (21:35)
== END 2024-09-21 22:36 | disposition home or self-care (01) ==
PROVIDERS: Emergency Provider Emergency Medicine
DX: R10.2 Pelvic and perineal pain (principal)
CPT/HCPCS: 36415; 76830; 76856; 80053; 81003; 81025; 83690; 85025; 96374; 99284; J1885

== ENCOUNTER 2024-11-13 13:21 | Emergency (ER) | payer OTHER, SELFPAY ==
[2024-11-13 13:30] VITALS: BP 135/84; PULSE 82; RESP 18; TEMP 37.1; O2SAT 100; BMI 22.3
--- NOTE | 2024-11-13 13:53 | DI.RAD.S_ITS ---
PROCEDURE: XR SHOULDER LT MIN 2V INDICATIONS: shoulder pain x 2 weeks TECHNIQUE: 3 views of the shoulder were acquired. COMPARISON: None. FINDINGS: Bones: No fractures or dislocations. No suspicious bony lesions. Visualized ribs appear intact. Soft tissues: No suspicious soft tissue calcifications. IMPRESSION: No acute left shoulder fracture or dislocation. No gross soft tissue abnormalities. Dictated by: Adal Moreno M.D. on 11/13/2024 at 14:32 Approved by: Adal Moreno M.D. on 11/13/2024 at 14:33
--- NOTE | 2024-11-13 13:54 | DI.RAD.S_ITS ---
PROCEDURE: XR CERVICAL SPINE 2V OR 3V INDICATIONS: pain x 2 weeks TECHNIQUE: 3 view(s) of the cervical spine were acquired. COMPARISON: None. FINDINGS: Bones: No fractures or dislocations to the T1 level. The lateral masses of C1 appear intact on the odontoid view. No suspicious bony lesions. Soft tissues: No prevertebral soft tissue swelling. IMPRESSION: No displaced fracture or traumatic subluxation. Dictated by: Adal Moreno M.D. on 11/13/2024 at 14:33 Approved by: Adal Moreno M.D. on 11/13/2024 at 14:33
--- NOTE | 2024-11-13 14:19 | ED_ITS ---
HPI - Extremity Problem <Deb Mcginnis PA-C - Last Filed: 11/13/24 16:49> General Chief complaint: Extremity Problem,Nontraumatic Stated complaint: losing feeling and ROM in left shoulder Time Seen by Provider: 11/13/24 13:39 Source: patient Mode of arrival: Ambulatory History of Present Illness HPI Narrative: Ms. Vazquez is a pleasant 24-year-old female with a past medical history of endometriosis s/p ex lap who presents to the emergency department for left shoulder pain x2 weeks. Patient denies any inciting injury but states she is left-hand dominant. About 2 weeks ago she ?slept on her left shoulder wrong? however pain has continued to get worse. She occasionally gets a sensation of burning/tingling pain going down the left arm into the hand. This is intermittent and not currently present. States that her range of motion of left shoulder is significantly limited. She denies fevers, chills, shortness of breath, flu-like symptoms. She is taking gabapentin for pain, no other medications. Related Data Previous Rx's Medication Instructions Recorded ibuprofen 600 mg tablet 600 mg PO Q6H PRN pain #20 tabs 01/02/23 meloxicam 7.5 mg tablet 7.5 mg PO BID PRN pain #10 tabs 06/15/24 methocarbamol 500 mg tablet 500 mg PO BEDTIME PRN muscle pain 11/13/24 #14 tabs naproxen 500 mg tablet 500 mg PO BID PRN pain #20 tabs 11/13/24 prednisone 20 mg tablet 40 mg (2 x 20 mg) PO DAILY 5 days 11/13/24 #10 tabs Allergies Allergy/AdvReac Type Severity Reaction Status Date / Time No Known Drug Allergies Allergy Verified 09/21/24 19:24 Review of Systems <Deb Mcginnis PA-C - Last Filed: 11/13/24 16:49> Review of Systems ROS Unobtainable: All systems reviewed & are unremarkable except as noted in HPI and below Patient History <Deb Mcginnis PA-C - Last Filed: 11/13/24 16:49> Social History Smoking Status: Never smoker Smoking Status: Never smoker Exam <Deb Mcginnis PA-C - Last Filed: 11/13/24 16:49> Narrative Exam Narrative: GENERAL: 24 year old patient appears stated age. Well-developed patient, in no acute distress. HEAD: Atraumatic. Normocephalic. NECK: Trachea midline. Cervical ROM intact. No midline cervical spine tenderness. CARDIOVASCULAR: Regular rate and rhythm. RESPIRATORY: ?Nonlabored respirations. ?Speaking in clear, full sentences. ?Clear to auscultation. EXTREMITIES: No deformity of left shoulder. Reported tenderness to palpation of anterior, posterior and lateral shoulder joint. No focal tenderness. Patient is limited to approximately 90? of abduction and forward flexion both active and passive secondary to pain. Strong radial pulse bilaterally. Pain and decreased strength with left-sided empty can test. BACK: Nontender without deformity or crepitance. NEURO: AOx3. ?Clear speech. ?Sensation strength intact in the distribution of median, radial, ulnar nerves bilaterally. SKIN: No rash or erythema of visible areas Initial Vital Signs Initial Vital Signs: Vital Signs Temperature 98.8 F 11/13/24 13:30 Pulse Rate 82 11/13/24 13:30 Respiratory Rate 18 11/13/24 13:30 Blood Pressure 135/84 11/13/24 13:30 Pulse Oximetry 100 11/13/24 13:30 Oxygen Delivery Method Room Air 11/13/24 13:30 <Valentin Stubbs MD - Last Filed: 11/15/24 19:38> Initial Vital Signs Initial Vital Signs: Vital Signs Temperature 98.8 F 11/13/24 13:30 Pulse Rate 82 11/13/24 13:30 Respiratory Rate 18 11/13/24 13:30 Blood Pressure 135/84 11/13/24 13:30 Pulse Oximetry 100 11/13/24 13:30 Oxygen Delivery Method Room Air 11/13/24 13:30 Course <Deb Mcginnis PA-C - Last Filed: 11/13/24 16:49> Orders Ordered: Discontinued Medications Acetaminophen (Acetaminophen 325 Mg Tablet) 975 mg PO NOW ONE Stop: 11/13/24 14:19 Last Admin: 11/13/24 14:28 Dose: 975 mg Documented By: DUKE Ketorolac Tromethamine (Ketorolac 30 Mg/Ml Vial) 30 mg IM NOW ONE Stop: 11/13/24 14:19 Last Admin: 11/13/24 14:30 Dose: 30 mg Documented By: DUKE Lidocaine (Lidocaine 5% Patch) 1 each TOP NOW ONE Stop: 11/13/24 14:19 Last Admin: 11/13/24 14:30 Dose: 1 each Documented By: DUKE Vital Signs Vital signs: Vital Signs - 8 hr 11/13/24 13:30 11/13/24 15:57 Temperature 98.8 F Pulse Rate 82 69 Respiratory Rate 18 16 Blood Pressure 135/84 126/72 Pulse Oximetry 100 100 Oxygen Delivery Method Room Air <Valentin Stubbs MD - Last Filed: 11/15/24 19:38> Orders Ordered: Discontinued Medications Acetaminophen (Acetaminophen 325 Mg Tablet) 975 mg PO NOW ONE Stop: 11/13/24 14:19 Last Admin: 11/13/24 14:28 Dose: 975 mg Documented By: DUKE Ketorolac Tromethamine (Ketorolac 30 Mg/Ml Vial) 30 mg IM NOW ONE Stop: 11/13/24 14:19 Last Admin: 11/13/24 14:30 Dose: 30 mg Documented By: DUKE Lidocaine (Lidocaine 5% Patch) 1 each TOP NOW ONE Stop: 11/13/24 14:19 Last Admin: 11/13/24 14:30 Dose: 1 each Documented By: DUKE Vital Signs Vital signs: Vital Signs - 8 hr 11/13/24 13:30 11/13/24 15:57 Temperature 98.8 F Pulse Rate 82 69 Respiratory Rate 18 16 Blood Pressure 135/84 126/72 Pulse Oximetry 100 100 Oxygen Delivery Method Room Air MDM - Extremity (Nontraumatic) <Deb Mcginnis PA-C - Last Filed: 11/13/24 16:49> Medical Records Attestation: I reviewed the patient's medical records. Imaging Data Left Shoulder: Radiologist's Impression: PROCEDURE: XR SHOULDER LT MIN 2V INDICATIONS: shoulder pain x 2 weeks TECHNIQUE: 3 views of the shoulder were acquired. COMPARISON: None. FINDINGS: Bones: No fractures or dislocations. No suspicious bony lesions. Visualized ribs appear intact. Soft tissues: No suspicious soft tissue calcifications. IMPRESSION: No acute left shoulder fracture or dislocation. No gross soft tissue abnormalities. Cervical Spine X-Ray: Radiologist's Impression: PROCEDURE: XR CERVICAL SPINE 2V OR 3V INDICATIONS: pain x 2 weeks TECHNIQUE: 3 view(s) of the cervical spine were acquired. COMPARISON: None. FINDINGS: Bones: No fractures or dislocations to the T1 level. The lateral masses of C1 appear intact on the odontoid view. No suspicious bony lesions. Soft tissues: No prevertebral soft tissue swelling. IMPRESSION: No displaced fracture or traumatic subluxation. MDM Narrative Medical decision making narrative: 24-year-old female with a past medical history of endometriosis s/p ex lap who presents to the emergency department for left shoulder pain x2 weeks. Differential diagnosis includes but is not limited to cervical radiculopathy, rotator cuff tear, adhesive capsulitis, strain, sprain, etc. On exam patient is in no acute distress, nontoxic-appearing, all vital signs within normal limits. She is nonfocal tenderness of left shoulder and decreased range of motion secondary to pain. Positive left-sided empty can test. We will obtain x-ray cervical spine and shoulder, treat with Toradol Tylenol Lidoderm at this time. Pain improved but not resolved. She continues to have limited range of motion but is neurovascularly intact. Shoulder x-ray reveals no acute left shoulder fracture dislocation. No gross soft tissue abnormalities. Cervical spine x-ray reveals no displaced fracture or traumatic subluxation. We will treat patient with prednisone 40 mg x 5 days as this would help with potential radiculopathy or adhesive capsulitis. Also recommended naproxen, acetaminophen for pain, methocarbamol if needed for muscle spasms. Patient was placed into a left arm sling for comfort at this time however I encouraged her to stretch the arm frequently. Advised follow up with PCP or orthopedics for persistent pain. She verbalized understanding all information is agreeable to this plan. Risks of muscle relaxers discussed. She is stable for discharge at this time. Discharge Plan Departure Patient Disposition: Home Clinical Impression: Acute pain of left shoulder Instructions: DI for Shoulder Pain Activity Restrictions/Additional Instructions: Thank you for coming to the emergency department. X-ray of your left shoulder and cervical spine revealed no acute bony abnormalities. I prescribed you a course of steroids to help reduce inflammation in the shoulder. Please also use the prescribed anti-inflammatory pain medication and muscle relaxer if needed. Please be aware that muscle relaxers may make you drowsy so it has important not to drive a car, operate heavy machinery or drink alcohol while taking these medications. You may use the sling for comfort but it is also important to stretch the shoulder and move around as much as possible. If your symptoms do not improve, please call to schedule an appointment with Orthopedics at [facility]. Please follow up with your primary care doctor within the next 2-3 days for ER follow-up. (If you do not have a PCP you can call [phone]. ?to schedule an appointment with an [facility] Primary Care Provider) IF YOU DEVELOP ANY NEW OR WORSENING SYMPTOMS, RETURN TO THE ER! Please read the attached instructions, they highlight more specific treatments and interventions for you at home. Thank you for letting me participate in your care, Deb Mcginnis PA-C Prescriptions: New prednisone 20 mg tablet 40 mg PO DAILY 5 Days Qty: 10 0RF naproxen 500 mg tablet 500 mg PO BID PRN (Reason: pain) Qty: 20 0RF Rx Instructions: Take with food. methocarbamol 500 mg tablet 500 mg PO BEDTIME PRN (Reason: muscle pain) Qty: 14 0RF No Action meloxicam 7.5 mg tablet 7.5 mg PO BID PRN (Reason: pain) Qty: 10 0RF ibuprofen 600 mg tablet 600 mg PO Q6H PRN (Reason: pain) Qty: 20 0RF Referrals: ProviderWan [Primary Care Provider] - Stand Alone Forms: Patient Portal/API/Survey ED Sign-out <Valentin Stubbs MD - Last Filed: 11/15/24 19:38> [facility]: I was immediately available in the department for consultation. ?This documentation has been reviewed and I agree with assessment and plan. Supervised by Valentin Stubbs MD
[2024-11-13] MEDS: ACETAMINOPHEN 325 MG TABLET 975 MG PO (14:28)
[2024-11-13] MEDS: KETOROLAC 30 MG/ML VIAL IM (14:30)
[2024-11-13] MEDS: LIDOCAINE 5% PATCH 1 EACH TOP (14:30)
[2024-11-13 15:57] VITALS: BP 126/72; PULSE 69; RESP 16; O2SAT 100
== END 2024-11-13 16:52 | disposition home or self-care (01) ==
PROVIDERS: Emergency Provider Physician Assistant
DX: M25.512 Pain in left shoulder (principal)
CPT/HCPCS: 72040; 73030; 96372; 99283; 99284; J1885